=== PATIENT | male | born 1990 | race Two or more races ===

== ENCOUNTER 2020-04-12 16:51 | Outpatient (REF) | payer OTHER, SELFPAY | END 2020-04-12 16:52 | disposition home or self-care (01) | LOC: HO.LAB 16:51 | PROVIDERS: Visit Provider Internal Medicine | DX: Z20.822 Contact with and (suspected) exposure to COVID-19 (principal) | CPT/HCPCS: 36415; C9803; U0003 ==

== ENCOUNTER 2021-03-19 12:01 | Outpatient (REF) | payer OTHER, SELFPAY ==
[2021-03-19 12:26] LABS: MANUAL DIFF FLAG NO
[2021-03-19 13:22] LABS: Basophils Percent Auto 0.3 % (0-2); Eosinophils Absolute Auto 0.2 X10*3/uL (0.0-0.4); Eosinophils Percent Auto 2.2 % (0-4); Hematocrit 43.9 % (42.0-52.0); Hemoglobin 13.8 g/dl (14.0-18.0); Imm Gran Abs Auto 0.02 X10*3/uL (0.00-0.03); Imm Gran Pct Auto 0.3 % (0.0-0.4); Lymphocytes Absolute Auto 1.7 X10*3/uL (1.2-4.9); Lymphocytes Percent Auto 22.8 % (20-40); Mean Corpuscular HGB Conc 31.4 g/dl (31.0-36.0); Mean Corpuscular Hemoglobin 26.8 pg (27.0-33.0); Mean Corpuscular Volume 85.4 fL (80.0-98.0); Mean Platelet Volume 9.2 fL (9.4-12.4); Monocytes Absolute Auto 0.6 X10*3/uL (0.1-1.2); Monocytes Percent Auto 8.3 % (2-11); Neutrophils Absolute Auto 4.8 x10*3/uL (2.0-8.3); Neutrophils Percent Auto 66.1 % (45-73); Platelet Count 314 X10*3/uL (160-400); Red Blood Count 5.14 X10*6/uL (4.60-5.80); Red Cell Distribution Width 13.5 % (11.0-16.0); White Blood Count 7.2 X10*3/uL (4.8-10.8)
[2021-03-19 13:30] LABS: Alanine Aminotransferase 29 U/L (0-40); Albumin Level 4.4 g/dL (3.5-5.0); Alkaline Phosphatase 93 U/L (39-117); Anion Gap 11 (12-20); Aspartate Amino Transferase 23 U/L (5-37); Bilirubin Total 0.8 mg/dL (0.0-1.0); Blood Urea Nitrogen 16 mg/dL (9-16); Calcium 9.6 mg/dL (8.4-10.2); Carbon Dioxide 28 mmol/L (22-29); Chloride 107 mmol/L (96-108); Cholesterol 186 mg/dL; Estimated Glomerular Filt Rate > 60; Glucose Random 102 mg/dL (60-115); HDL Cholesterol 53 mg/dL; LDL Cholesterol Calculated 119 mg/dl; Potassium 4.8 mmol/L (3.3-5.1); Sodium 141 mmol/L (135-145); Total Protein 7.6 g/dL (6.5-8.0); Triglycerides 72 mg/dL
[2021-03-19 13:43] LABS: Free T4 (Free Thyroxine) 1.06 ng/dL (0.71-1.85); Thyroid Stimulating Hormone 1.41 uIU/mL (0.32-4.0)
[2021-03-19 13:58] LABS: Folate 18.1 ng/mL (> or = 4.0); Vitamin B12 792 pg/mL (200-900)
== END 2021-03-19 12:02 | disposition home or self-care (01) ==
LOC: HO.LAB 12:01
PROVIDERS: PCP Internal Medicine; Visit Provider Internal Medicine
DX: E66.9 Obesity, unspecified (principal); E78.00 Pure hypercholesterolemia, unspecified
CPT/HCPCS: 36415; 80053; 80061; 82607; 82746; 84439; 84443; 85025

== ENCOUNTER → 2021-04-18 10:31 | Outpatient (BNVA) | payer OTHER, SELFPAY | PROVIDERS: PCP Internal Medicine; Visit Provider Dietitian, Registered | DX: R73.02 Impaired glucose tolerance (oral) (principal) | CPT/HCPCS: 97802 ==

== ENCOUNTER → 2021-05-31 10:31 | Outpatient (BNVA) | payer OTHER, SELFPAY | PROVIDERS: PCP Internal Medicine; Visit Provider Dietitian, Registered | DX: R73.02 Impaired glucose tolerance (oral) (principal) | CPT/HCPCS: 97803 ==

== ENCOUNTER 2021-07-02 13:54 | Outpatient (REF) | payer OTHER, SELFPAY ==
[2021-07-02 14:08] LABS: MANUAL DIFF FLAG NO
[2021-07-02 14:59] LABS: Basophils Percent Auto 0.3 % (0-2); Eosinophils Absolute Auto 0.1 X10*3/uL (0.0-0.4); Eosinophils Percent Auto 1.9 % (0-4); Hematocrit 41.9 % (42.0-52.0); Hemoglobin 13.2 g/dl (14.0-18.0); Imm Gran Abs Auto 0.02 X10*3/uL (0.00-0.03); Imm Gran Pct Auto 0.3 % (0.0-0.4); Immature Retic Fraction 7.1 % (2.3-13.4); Lymphocytes Absolute Auto 1.9 X10*3/uL (1.2-4.9); Lymphocytes Percent Auto 27.8 % (20-40); Mean Corpuscular HGB Conc 31.5 g/dl (31.0-36.0); Mean Corpuscular Volume 85.7 fL (80.0-98.0); Mean Platelet Volume 9.2 fL (9.4-12.4); Monocytes Absolute Auto 0.5 X10*3/uL (0.1-1.2); Monocytes Percent Auto 7.8 % (2-11); Neutrophils Absolute Auto 4.3 x10*3/uL (2.0-8.3); Neutrophils Percent Auto 61.9 % (45-73); Platelet Count 332 X10*3/uL (160-400); Red Blood Count 4.89 X10*6/uL (4.60-5.80); Red Cell Distribution Width 13.5 % (11.0-16.0); Retic HGB Equivalent 31.5 pg (30.0-35.0); Reticulocyte Percent 0.9 % (0.5-1.8); Reticulocytes Absolute 0.044 X10*6/uL (0.026-0.095); White Blood Count 6.9 X10*3/uL (4.8-10.8)
[2021-07-02 15:10] LABS: Estimated Average Glucose 105 mg/dL; Hemoglobin A1c % 5.3 %
[2021-07-02 15:22] LABS: Alanine Aminotransferase 31 U/L (0-40); Albumin Level 4.2 g/dL (3.5-5.0); Alkaline Phosphatase 104 U/L (39-117); Anion Gap 11 (12-20); Aspartate Amino Transferase 23 U/L (5-37); Bilirubin Total 0.6 mg/dL (0.0-1.0); Blood Urea Nitrogen 14 mg/dL (9-16); Calcium 9.5 mg/dL (8.4-10.2); Carbon Dioxide 27 mmol/L (22-29); Chloride 107 mmol/L (96-108); Estimated Glomerular Filt Rate > 60; Glucose Random 91 mg/dL (60-115); Iron 90 mcg/dL (45-160); Percent Iron Saturation 24 % (15-50); Potassium 4.5 mmol/L (3.3-5.1); Sodium 140 mmol/L (135-145); Total Iron Binding Capacity 372 mcg/dL (228-428); Total Protein 7.4 g/dL (6.5-8.0); Unsaturated Iron Binding 282 ug/dL
[2021-07-02 15:42] LABS: Ferritin 46 ng/mL (20-250)
[2021-07-02 15:54] LABS: Folate 17.6 ng/mL (> or = 4.0); Vitamin B12 898 pg/mL (200-900)
== END 2021-07-02 13:55 | disposition home or self-care (01) ==
LOC: HO.LAB 13:54
PROVIDERS: PCP Internal Medicine; Visit Provider Internal Medicine
DX: D64.9 Anemia, unspecified (principal); R73.02 Impaired glucose tolerance (oral)
CPT/HCPCS: 36415; 80053; 82607; 82728; 82746; 83036; 83540; 85025; 85045

== ENCOUNTER → 2021-07-23 10:56 | Outpatient (BNVA) | payer OTHER, SELFPAY | PROVIDERS: PCP Internal Medicine; Visit Provider Dietitian, Registered | DX: R73.02 Impaired glucose tolerance (oral) (principal); E66.9 Obesity, unspecified; Z68.41 Body mass index [BMI] 40.0-44.9, adult; Z71.3 Dietary counseling and surveillance | CPT/HCPCS: 97803 ==

== ENCOUNTER 2021-10-10 14:15 | Outpatient (REF) | payer OTHER, SELFPAY ==
[2021-10-10 14:44] LABS: MANUAL DIFF FLAG NO
[2021-10-10 16:06] LABS: Basophils Percent Auto 0.4 % (0-2); Eosinophils Absolute Auto 0.2 X10*3/uL (0.0-0.4); Eosinophils Percent Auto 2.5 % (0-4); Hematocrit 41.5 % (42.0-52.0); Hemoglobin 13.4 g/dl (14.0-18.0); Imm Gran Abs Auto 0.02 X10*3/uL (0.00-0.03); Imm Gran Pct Auto 0.3 % (0.0-0.4); Immature Retic Fraction 5.2 % (2.3-13.4); Lymphocytes Percent Auto 26.4 % (20-40); Mean Corpuscular HGB Conc 32.3 g/dl (31.0-36.0); Mean Corpuscular Hemoglobin 27.4 pg (27.0-33.0); Mean Corpuscular Volume 84.9 fL (80.0-98.0); Mean Platelet Volume 9.4 fL (9.4-12.4); Monocytes Absolute Auto 0.7 X10*3/uL (0.1-1.2); Monocytes Percent Auto 8.8 % (2-11); Neutrophils Absolute Auto 4.6 x10*3/uL (2.0-8.3); Neutrophils Percent Auto 61.6 % (45-73); Platelet Count 329 X10*3/uL (160-400); Red Blood Count 4.89 X10*6/uL (4.60-5.80); Red Cell Distribution Width 13.5 % (11.0-16.0); Retic HGB Equivalent 32.6 pg (30.0-35.0); Reticulocyte Percent 1.2 % (0.5-1.8); Reticulocytes Absolute 0.058 X10*6/uL (0.026-0.095); White Blood Count 7.5 X10*3/uL (4.8-10.8)
[2021-10-10 16:22] LABS: Alanine Aminotransferase 23 U/L (0-40); Albumin Level 4.3 g/dL (3.5-5.0); Alkaline Phosphatase 108 U/L (39-117); Anion Gap 12 (12-20); Aspartate Amino Transferase 21 U/L (5-37); Bilirubin Total 0.8 mg/dL (0.0-1.0); Blood Urea Nitrogen 14 mg/dL (9-16); Calcium 8.9 mg/dL (8.4-10.2); Carbon Dioxide 24 mmol/L (22-29); Chloride 106 mmol/L (96-108); Estimated Glomerular Filt Rate > 60; Glucose Random 92 mg/dL (60-115); Iron 89 mcg/dL (45-160); Percent Iron Saturation 24 % (15-50); Potassium 4.1 mmol/L (3.3-5.1); Sodium 138 mmol/L (135-145); Total Iron Binding Capacity 368 mcg/dL (228-428); Total Protein 7.3 g/dL (6.5-8.0); Unsaturated Iron Binding 279 ug/dL
[2021-10-10 16:26] LABS: Estimated Average Glucose 108 mg/dL; Hemoglobin A1c % 5.4 %
[2021-10-10 16:44] LABS: Ferritin 69 ng/mL (20-250); Free T4 (Free Thyroxine) 0.99 ng/dL (0.71-1.85); Thyroid Stimulating Hormone 1.73 uIU/mL (0.32-4.0)
[2021-10-10 16:54] LABS: Folate 17.8 ng/mL (> or = 4.0); Vitamin B12 887 pg/mL (200-900)
== END 2021-10-10 14:16 | disposition home or self-care (01) ==
LOC: HO.LAB 14:15
PROVIDERS: PCP Internal Medicine; Visit Provider Internal Medicine
DX: R73.02 Impaired glucose tolerance (oral) (principal); D64.9 Anemia, unspecified
CPT/HCPCS: 36415; 80053; 82607; 82728; 82746; 83036; 83540; 84439; 84443; 85025; 85045

== ENCOUNTER → 2021-10-23 10:58 | Outpatient (BNV) | payer OTHER, SELFPAY | PROVIDERS: PCP Internal Medicine; Referring Provider Internal Medicine; Visit Provider Internal Medicine Medical Oncology | DX: D64.9 Anemia, unspecified (principal) | CPT/HCPCS: 99204; 99213 ==

== ENCOUNTER → 2021-11-07 13:09 | Outpatient (BNVA) | payer OTHER, SELFPAY | PROVIDERS: PCP Internal Medicine; Visit Provider Dietitian, Registered | DX: R73.02 Impaired glucose tolerance (oral) (principal); E66.9 Obesity, unspecified; Z68.41 Body mass index [BMI] 40.0-44.9, adult; Z71.3 Dietary counseling and surveillance | CPT/HCPCS: 97803 ==

== ENCOUNTER → 2022-02-10 13:03 | Outpatient (BNVA) | payer OTHER, SELFPAY | PROVIDERS: PCP Internal Medicine; Visit Provider Dietitian, Registered | DX: R73.02 Impaired glucose tolerance (oral) (principal) | CPT/HCPCS: 97803 ==

== ENCOUNTER 2022-10-28 11:24 | Outpatient (AMB) | payer OTHER, SELFPAY ==
--- NOTE | 2022-10-28 11:27 | A.OFFPC_ITS ---
Vital Signs 10/28/22 11:28 Height 5 ft 8 in Weight 274 lb BMI 41.7 BP 130/68 Blood Pressure Location Lt brachial Position Sitting Pulse 82 Pulse Source Pulse Oximeter Temp Source Skin Pulse Oximetry (%) 100 Oxygen Delivery Method Room Air Intake Visit Reasons: [facility] 09/29/22 -periformis Intake Note: Patient is here to follow-up after a visit the emergency department at [facility] on Barbecue Cook Required: No Allergies No Known Allergies Allergy (Verified 10/28/22 11:28) Tobacco use date assessed: 10/28/22 Dental Screening Dental Screen Date: 10/28/22 HPI HPI Comments History of Present Illness Details 32-year-old male past medical history significant for impaired glucose tolerance, mild anemia and obesity. Patient of Dr. Hubbard. Patient presents today for emergency room follow-up from [facility] for periformis syndrome he has had in the past.Denied and bowel or bladder problems. Patient reported that he was previously followed by chiropractor with relief of symptoms. Lumbar spine x-ray unremarkable. Patient was treated with Lidoderm patches. Patient states following active back relief center, chiropractic. Patient sates pain in legs are improving. Denies any lower back pain at this time. Denies numbness and tingling, denies bowel or bladder issues. [facility] Medical History (Updated 10/28/22 @ 12:16 by MITRA Norwood) Annual physical exam Obesity (BMI 30-39.9) Family History Father Hypertension Mother Diabetes Sister No problems noted. Other No family history of cancer Social History Household Members: Family Housing: House Are you a primary critical care technician to a significant other at home: No Do you presently have visiting nurse or other home services: No Alcohol intake: never Patient Tobacco Use Status: Never used Tobacco e-Cigarette/Vaping Use: Never Used Second Hand Smoke Exposure: No service: No Current occupational status: employed Cognitive needs: No Hearing needs: No Vision needs: No Questionnaire PHQ-9 Over the last 2 weeks, how often have you been bothered by any of the following problems? 1. Little interest or pleasure in doing things: not at all 2. Feeling down, depressed, or hopeless: not at all 3. Trouble falling or staying asleep, or sleeping too much: not at all 4. Feeling tired or having little energy: not at all 5. Poor appetite or overeating: not at all 6. Feeling bad about yourself - or that you are a failure or have let yourself or your family down: not at all 7. Trouble concentrating on things, such as reading the newspaper or watching television: not at all 8. Moving or speaking so slowly that other people could have noticed. Or the opposite - being so fidgety or restless that you have been moving around a lot more than usual: not at all 9. Thoughts that you would be better off or of hurting yourself in some way: not at all Total score: 0 Depression Screening Interpretation: Negative Source: Developed by Drs. Iván Rush, Elle Burrell, Alfonso Morrell and colleagues, with an educational leisa from [employer]. Thrive Questionnaire Date Thrive assessed: 04/11/22 AUDIT C Alcohol Use Questionnaire (AUDIT-C) 1. How often do you have a drink containing alcohol?: Never 2. How many drinks containing alcohol do you have on a typical day when you are drinking?: 1 or 2 (0) 3. How often do you have six or more drinks on one occasion?: Never Total Score: 0 SHERRY-7 AMB Questionnaire SHERRY-7 Date SHERRY - 7 assessed: 04/11/22 Source: Developed by Drs. Iván Rush, Elle Burrell, Alfonso Morrell and colleagues, with an educational leisa from [employer]. Review of Systems Const Denies chills, Denies fatigue, Denies fever(s) and Denies poor appetite Eyes Denies no additional complaints ENT Reports Normal hearing present Card Denies chest pain, Denies syncope, Denies rapid heart rate and Denies dyspnea Resp Denies cough and Denies dyspnea GI Denies change in stool character, Denies constipation, Denies diarrhea, Denies nausea and Denies vomiting Denies dysuria, Denies urinary frequency and Denies urinary urgency Neuro Reports Normal hearing present, Denies confusion and Denies syncope Psych Denies confusion Endo Denies fatigue Physical exam (Primary Care) Vital Signs: Last Vital Signs Pulse 82 10/28/22 11:28 BP 130/68 10/28/22 11:28 Pulse Ox 100 10/28/22 11:28 Oxygen Delivery Method Room Air 10/28/22 11:28 BMI result Body Mass Index 41.7 Tobacco/Smoking Status: Tobacco use Status Tobacco use date assessed 10/28/22 10/28/22 11:29 Patient Tobacco Use Status Never used Tobacco 10/28/22 11:29 e-Cigarette/Vaping Use Never Used 10/28/22 11:29 PHQ-9: PHQ-9 Score PHQ-9: Total score 0 10/28/22 11:41 Depression Screening Interpretation: Negative Thrive Assessment: Date of Thrive Assessment Date Thrive assessed 04/11/22 10/28/22 11:29 Const General: No confusion Orientation/consciousness: No confusion HENMT Head: Yes normocephalic and Yes atraumatic Eyes Conjunctivae: conjunctivae normal Chest Chest palpation & inspection: normal inspection of the chest Resp Effort & Inspection: normal respiratory effort Auscultation: clear to auscultation bilaterally, no crackles, no rhonchi and no wheezes Cardio Rate: regular rate Rhythm: regular rhythm Heart sounds: S1 normal heart sound present and S2 normal heart sound present GI Inspection: Yes normal to inspection Neuro General: No confusion Cranial nerves: Yes Normal hearing present Extrem General: No edema Assessment and Plan Assessment & Plan (1) Piriformis syndrome of both sides: Code(s): G57.03 - Lesion of sciatic nerve, bilateral lower limbs Plan: Patient declined referral to physical therapy at this time. Patient declined the need for refill on Lidoderm patches. Patient states he will continue to follow with his chiropractor in follow-up if needed. Coding Level of Care Code Est Pt Level 3 (70671) Diagnoses Piriformis syndrome of both sides G57.03
[2022-10-28 11:28] VITALS: BP 130/68; PULSE 82; O2SAT 100; BMI 41.7
== END 2022-10-28 11:46 | disposition home or self-care (01) ==
PROVIDERS: PCP Internal Medicine; Visit Provider Nurse Practitioner Family
DX: G57.03 Lesion of sciatic nerve, bilateral lower limbs (principal)
CPT/HCPCS: 99213

== ENCOUNTER 2022-12-31 12:23 | Outpatient (AMB) | payer OTHER, SELFPAY ==
--- NOTE | 2022-12-31 12:34 | MHC.PC.OV ---
Vital Signs 12/31/22 12:36 Height 5 ft 8 in Weight 271 lb BMI 41.2 BP 90/60 Blood Pressure Location Lt brachial Position Sitting Pulse 61 Pulse Source Pulse Oximeter Pulse Oximetry (%) 98 Oxygen Delivery Method Room Air Intake Visit Reasons: Obesity Intake Note: Patient is here to follow up on Obesity. [employer] Technical Lead Senior Developer Required: No Operations Advisor: Not Required per policy Accompanied by: Self / Same As Patient Allergies No Known Allergies Allergy (Verified 12/31/22 12:36) Tobacco use date assessed: 12/31/22 Dental Screening Dental Screen Date: 12/31/22 Did you have a dental visit in the last 12 months?: No Did you have a dental problem in the last 6 months where you did not have access to dental care?: No Was dental information given to patient?: No HPI Obesity HPI Details 32-year-old morbidly obese male with impaired glucose tolerance mild anemia coming in for follow-up. In October 2022 for piriformis syndrome which is sciatic nerve problem patient follows up with hematology oncology also and continue to follow-up blood count having anemia. runny nose, no sob.. trying to loose weight - attending classes. [facility] Medical History (Updated 12/31/22 @ 12:52 by Tuan Hubbard MD) Piriformis syndrome of both sides Obesity (BMI 30-39.9) Annual physical exam Surgical History (Updated 12/31/22 @ 12:40 by KYLER Sanchez) History of wisdom tooth extraction Family History (Updated 12/31/22 @ 12:35 by KYLER Sanchez) Father Hypertension Mother Diabetes Sister No problems noted. Other No family history of cancer Social History Household Members: Family Housing: House Are you a primary director of patient care to a significant other at home: No Do you presently have visiting nurse or other home services: No Alcohol intake: never Patient Tobacco Use Status: Never used Tobacco e-Cigarette/Vaping Use: Never Used Second Hand Smoke Exposure: No service: No Current occupational status: employed Cognitive needs: No Hearing needs: No Vision needs: No Questionnaire Thrive Questionnaire Date Thrive assessed: 04/11/22 SHERRY-7 AMB Questionnaire SHERRY-7 Date SHERRY - 7 assessed: 04/11/22 Source: Developed by Elle Quan B.W. Indra, Alfonso Morrell and colleagues, with an educational leisa from [employer]. Physical exam (Primary Care) Vital Signs: Last Vital Signs Pulse 61 12/31/22 12:36 BP 90/60 12/31/22 12:36 Pulse Ox 98 12/31/22 12:36 Oxygen Delivery Method Room Air 12/31/22 12:36 BMI result Body Mass Index 41.2 Tobacco/Smoking Status: Tobacco use Status Tobacco use date assessed 12/31/22 12/31/22 12:40 Patient Tobacco Use Status Never used Tobacco 12/31/22 12:35 e-Cigarette/Vaping Use Never Used 12/31/22 12:35 Thrive Assessment: Date of Thrive Assessment Date Thrive assessed 04/11/22 12/31/22 12:35 Const General: alert; No acute distress Eyes Conjunctivae: conjunctivae normal Resp Auscultation: clear to auscultation bilaterally Cardio Rate: regular rate Rhythm: regular rhythm GI Inspection: Yes normal to inspection Extrem General: Yes normal to inspection and No edema Office Procedures Flu Questionnaire Does the patient have a severe egg allergy?: No Does the patient have severe life threatening allergies?: No Does the patient have a fever or illness today?: No Has the patient ever had Guillain-[place] Syndrome?: No Has the patient ever had any past reaction to a flu shot?: No Immunizations flu vacc [id number] 6mos up(PF) 60 mcg(15 mcgx4)/0.5 mL IM syringe Performing Provider: Tuan Hubbard MD [facility] Administered by: KYLER Sanchez on 12/31/22 12:40 Dose Route Admin Location Dispensed Lot Number Expiration Date NDC Physician Assistant 0.5 mL IM Left Deltoid 0.5 mL [id number] 09/27/23 15032-127-31 [employer] VIS Given Date VIS Provided VIS Publication Date 12/31/22 Single Vaccine 20 Eligibility Eligibility Date Funding Source Not [facility] Eligible 12/31/22 Private Assessment and Plan Assessment & Plan (1) Morbid obesity: Code(s): E66.01 - Morbid (severe) obesity due to excess calories Plan: Diet and exercise (2) Sciatic nerve pain: Code(s): M54.30 - Sciatica, unspecified side Plan: Keep active patient follows up with chiropractor and is better now (3) Normochromic normocytic anemia: Code(s): D64.9 - Anemia, unspecified Plan: Patient follows up with hematology oncology and continue to monitor (4) Generalized anxiety disorder: Code(s): F41.1 - Generalized anxiety disorder Orders: Orders Influenza [id number] Immunization Today Z23 - Encounter for immunization Referrals Psychiatry Referral F41.1 - Generalized anxiety disorder Medications: New flu vacc [id number] 6mos up(PF) 0.5 mL IM ONCE 0.5 mL 0RF Z23 - Encounter for immunization Coding Level of Care Code Est Pt Level 4 (67717) Diagnoses Morbid obesity E66.01 Sciatic nerve pain M54.30 Normochromic normocytic anemia D64.9 Generalized anxiety disorder F41.1
[2022-12-31 12:36] VITALS: BP 90/60; PULSE 61; O2SAT 98; BMI 41.2
== END 2022-12-31 12:57 | disposition home or self-care (01) ==
PROVIDERS: PCP Internal Medicine; Visit Provider Internal Medicine
DX: M54.30 Sciatica, unspecified side (principal); E66.01 Morbid (severe) obesity due to excess calories; Z68.41 Body mass index [BMI] 40.0-44.9, adult; Z23 Encounter for immunization; D64.9 Anemia, unspecified; F41.1 Generalized anxiety disorder
CPT/HCPCS: 90471; 90686; 99214

== ENCOUNTER 2023-07-02 15:43 | Outpatient (AMB) | payer OTHER, SELFPAY ==
[2023-07-02 15:43] VITALS: BMI 40.6
--- NOTE | 2023-07-02 15:43 | MHC.PC.OV ---
Vital Signs 07/02/23 15:43 Height 5 ft 8 in Weight 267 lb 0.2 oz BMI 40.6 Intake Visit Reasons: obesity Inside Sales Person Required: No Allergies No Known Allergies Allergy (Verified 07/02/23 15:44) Medication List - Last Reconciled 07/02/23 by Tuan Hubbard MD garlic 1,000 mg PO DAILY iron 65 mg PO DAILY multivit with min-folic acid 200 mcg (Multivitamin Gummies) 1 tab PO DAILY ondansetron 8 mg PO Q8H PRN Tobacco use date assessed: 07/02/23 Dental Screening Dental Screen Date: 12/31/22 HPI obesity HPI Details 33-year-old morbidly obese male with generalized anxiety disorder impaired glucose tolerance anemia coming in for follow-up through Telehealth last seen in December 2022. Review of the notes follows up with Hematology-Oncology April 2023 blood count stable and will continue to monitor.yesterday, nausea or vomiting watery stools, . Patient has been told by family to get psychiatric evaluation and will do referral. [facility] Medical History (Updated 07/02/23 @ 17:25 by Tuan Hubbard MD) Piriformis syndrome of both sides Obesity (BMI 30-39.9) Annual physical exam Surgical History History of wisdom tooth extraction Family History Father Hypertension Mother Diabetes Sister No problems noted. Other No family history of cancer Social History Household Members: Family Housing: House Are you a primary care assistant to a significant other at home: No Do you presently have visiting nurse or other home services: No Alcohol intake: never Patient Tobacco Use Status: Never used Tobacco e-Cigarette/Vaping Use: Never Used Second Hand Smoke Exposure: No service: No Current occupational status: employed Cognitive needs: No Hearing needs: No Vision needs: No Questionnaire Thrive Questionnaire Date Thrive assessed: 04/11/22 AUDIT C Alcohol Use Questionnaire (AUDIT-C) 1. How often do you have a drink containing alcohol?: Never 2. How many drinks containing alcohol do you have on a typical day when you are drinking?: 1 or 2 (0) 3. How often do you have six or more drinks on one occasion?: Never Total Score: 0 SHERRY-7 AMB Questionnaire SHERRY-7 Date SHERRY - 7 assessed: 04/11/22 Source: Developed by Drs. Iván Rush, Elle Burrell, Alfonso Morrell and colleagues, with an educational leisa from [employer]. Physical exam (Primary Care) BMI result Body Mass Index 40.6 Tobacco/Smoking Status: Tobacco use Status Tobacco use date assessed 07/02/23 07/02/23 15:45 Patient Tobacco Use Status Never used Tobacco 07/02/23 15:45 e-Cigarette/Vaping Use Never Used 07/02/23 15:45 Thrive Assessment: Date of Thrive Assessment Date Thrive assessed 04/11/22 07/02/23 15:45 Telehealth Telehealth Location of provider rendering services: practice address Location of patient: address on file Patient Identification confirmed using: Name, : Yes Telehealth method: video (iphone ) Patient verbally consented to treatment: Yes Patient verbally consented to billing insurance company: Yes Patient informed of any privacy concerns related to visit: Yes Minutes spent on Phone/Video with Pt.: 25 Assessment and Plan Assessment & Plan (1) Morbid obesity: Code(s): E66.01 - Morbid (severe) obesity due to excess calories Plan: Noted weight loss, continue to eat healthy, keep active and keep well hydrated (2) Impaired glucose tolerance: Code(s): R73.02 - Impaired glucose tolerance (oral) Plan: Decrease the amount of carbohydrate intake, pasta, bread, rice and potatoes are all sugar and that is aside from all the sweet stuff, remember that fruits are good but they are Sweet also. (3) Normochromic normocytic anemia: Code(s): D64.9 - Anemia, unspecified Plan: Continue to monitor blood count. (4) Gastroenteritis: Code(s): K52.9 - Noninfective gastroenteritis and colitis, unspecified Plan: discussed the importance of keeping well hydrated, discussed about symptoms of getting dehydrated like last urine output if it is more than 5 hours already then it is a problem, advised patient to stick the tongue out and the moisture on the tongue gives us an idea of hydration. (5) Generalized anxiety disorder: Code(s): F41.1 - Generalized anxiety disorder Plan: Family is asking for psychiatric evaluation and referral is done Orders: Referrals Psychiatry Referral F41.1 - Generalized anxiety disorder Medications: New ondansetron 8 mg PO Q8H PRN 14 tabs 0RF nausea and vomiting K52.9 - Noninfective gastroenteritis and colitis, unspecified Coding Level of Care Code Tele Est Pt Level 4 (81158) Diagnoses Morbid obesity E66.01 Impaired glucose tolerance R73.02 Normochromic normocytic anemia D64.9 Gastroenteritis K52.9 Generalized anxiety disorder F41.1
== END 2023-07-02 17:33 | disposition home or self-care (01) ==
LOC: HO.HMGH 15:43
PROVIDERS: PCP Internal Medicine; Visit Provider Internal Medicine
DX: E66.01 Morbid (severe) obesity due to excess calories (principal); Z68.41 Body mass index [BMI] 40.0-44.9, adult; R73.02 Impaired glucose tolerance (oral); D64.9 Anemia, unspecified; F41.1 Generalized anxiety disorder
CPT/HCPCS: 99214

== ENCOUNTER 2023-11-23 16:42 | Outpatient (AMB) | payer OTHER, SELFPAY ==
[2023-11-23 16:47] VITALS: BP 130/80; PULSE 62; O2SAT 98; BMI 42.3
--- NOTE | 2023-11-23 16:47 | MHC.PC.OV ---
Vital Signs 11/23/23 16:47 Height 5 ft 8 in Weight 278 lb 8 oz BMI 42.3 BP 130/80 Blood Pressure Location Lt brachial Position Sitting Pulse 62 Pulse Source Pulse Oximeter Pulse Oximetry (%) 98 Oxygen Delivery Method Room Air Intake Visit Reasons: Generalized anxiety disorder- NEEDS PHQ9 Division Service Manager Required: No Accompanied by: Self / Same As Patient Allergies No Known Allergies Allergy (Verified 11/23/23 16:48) Medication List - Last Reconciled 11/23/23 by Tuan Hubbard MD iron 65 mg PO DAILY krill oil mg PO multivit with min-folic acid 200 mcg (Multivitamin Gummies) 1 tab PO DAILY Tobacco use date assessed: 11/23/23 Dental Screening Dental Screen Date: 11/23/23 Did you have a dental visit in the last 12 months?: Yes Did you have a dental problem in the last 6 months where you did not have access to dental care?: No Was dental information given to patient?: Patient has dentist HPI Generalized anxiety disorder- NEEDS PHQ9 HPI Details 33-year-old morbidly obese male with impaired glucose tolerance anemia generalized anxiety disorder last seen in June 2023. Patient is here for follow-up. Patient did see Hematology-Oncology for follow-up this has been stable and continues to be followed up. deny depression . Patient brouhgt in form for cori mony to [facility] Medical History (Updated 11/23/23 @ 17:04 by Tuan Hubbard MD) Obesity Piriformis syndrome of both sides Obesity (BMI 30-39.9) Annual physical exam Surgical History History of wisdom tooth extraction Family History Father Hypertension Mother Diabetes Sister No problems noted. Other No family history of cancer Social History Household Members: Family Housing: House Are you a primary primary care nurse practitioner to a significant other at home: No Do you presently have visiting nurse or other home services: No Alcohol intake: never Patient Tobacco Use Status: Never used Tobacco e-Cigarette/Vaping Use: Never Used Second Hand Smoke Exposure: No service: No Current occupational status: employed Current occupational exposures/hazards: No Cognitive needs: No Hearing needs: No Vision needs: No Questionnaire PHQ-9 Over the last 2 weeks, how often have you been bothered by any of the following problems? 1. Little interest or pleasure in doing things: not at all 2. Feeling down, depressed, or hopeless: not at all 3. Trouble falling or staying asleep, or sleeping too much: not at all 4. Feeling tired or having little energy: not at all 5. Poor appetite or overeating: not at all 6. Feeling bad about yourself - or that you are a failure or have let yourself or your family down: not at all 7. Trouble concentrating on things, such as reading the newspaper or watching television: not at all 8. Moving or speaking so slowly that other people could have noticed. Or the opposite - being so fidgety or restless that you have been moving around a lot more than usual: not at all 9. Thoughts that you would be better off or of hurting yourself in some way: not at all Total score: 0 Depression Screening Interpretation: Negative Depression Screening Done: Yes 73771 - PHQ-9 Billing: Yes Source: Developed by Drs. Iván Rush, Elel Burrell, Alfonso Morrell and colleagues, with an educational leisa from [employer]. Thrive Questionnaire Date Thrive assessed: 11/23/23 I am a: Patient What is your living situation today?: I have a steady place to live Within the past 12 months, did the food you bought not last and you didn't have the money to get more?: Never true Within the past 12 months, did you worry whether your food would run out before you got money to buy more?: Never true Do you have trouble paying for medicines?: No Do you have trouble getting transportation to medical appointments?: No Do you have trouble paying your heating and electricity bill?: No Do you have trouble taking care of your child, family member or friend?: No Do you have trouble with day-to-day activities such as bathing, preparing meals, shopping, managing finances, etc.?: No Are you currently unemployed and looking for a job?: No Are you interested in more education?: No Please select the resources that you would like help with: None Currently or been in a relationship where the following occur: No concerns reported THRIVE Score: 0 AUDIT C Alcohol Use Questionnaire (AUDIT-C) 1. How often do you have a drink containing alcohol?: Never 2. How many drinks containing alcohol do you have on a typical day when you are drinking?: 1 or 2 (0) 3. How often do you have six or more drinks on one occasion?: Never Total Score: 0 SHERRY-7 AMB Questionnaire SHERRY-7 Date SHERRY - 7 assessed: 11/23/23 Feeling nervous, anxious, or on edge: 1 = Several days Not being able to stop or control worryin = Several days Worrying too much about different things: 1 = Several days Trouble relaxin = Not at all Being so restless that it is hard to sit still: 0 = Not at all Becoming easily annoyed or irritable: 0 = Not at all Feeling afraid as if something awful might happen: 0 = Not at all Total SHERRY-7 score (0-4 normal; 5-9 mild; 10-14 moderate; 15-21 severe): 3 Source: Developed by Drs. Iván Rush, Elle Burrell, Alfonso Morrell and colleagues, with an educational leisa from [employer]. Review of Systems Const Denies poor appetite and Denies weakness Eyes Denies no additional complaints ENT Reports Normal hearing present, Denies dizziness, Denies nasal congestion, Denies tinnitus and Denies sore throat Card Denies chest pain, Denies syncope, Denies rapid heart rate and Denies dyspnea Resp Denies cough and Denies dyspnea GI Denies change in stool character, Reports constipation, Denies diarrhea, Denies nausea and Denies vomiting Denies dysuria and Denies urinary frequency Neuro Reports Normal hearing present, Denies confusion, Denies dizziness, Denies syncope and Denies weakness Psych Denies confusion Physical exam (Primary Care) Vital Signs: Last Vital Signs Pulse 62 11/23/23 16:47 BP 130/80 11/23/23 16:47 Pulse Ox 98 11/23/23 16:47 Oxygen Delivery Method Room Air 11/23/23 16:47 BMI result Body Mass Index 42.3 Tobacco/Smoking Status: Tobacco use Status Tobacco use date assessed 11/23/23 11/23/23 16:54 Patient Tobacco Use Status Never used Tobacco 11/23/23 16:54 e-Cigarette/Vaping Use Never Used 11/23/23 16:54 PHQ-9: PHQ-9 Score PHQ-9: Total score 0 11/23/23 16:54 Depression Screening Interpretation: Negative Thrive Assessment: Date of Thrive Assessment Date Thrive assessed 11/23/23 11/23/23 16:54 Currently or been in a relationship where the following occur: No concerns reported Const General: No confusion Orientation/consciousness: No confusion HENMT Head: Yes normocephalic Ears: external ears normal and TM's normal bilaterally Face and sinus: Yes normal facial exam Mouth: moist mucous membranes Throat: Yes tonsils normal Eyes Conjunctivae: conjunctivae normal Pupils: Equal, round and reactive pupils present and Pupil accommodation reflex normal Direct Ophthalmoscopy: normal light reflex Neck Neck: No lymphadenopathy Thyroid: Thyroid normal Chest Chest palpation & inspection: normal inspection of the chest Resp Effort & Inspection: normal respiratory effort and no audible wheezes Auscultation: clear to auscultation bilaterally, no crackles, no wheezes and lung sounds not diminished Cardio Rate: regular rate Rhythm: regular rhythm Peripheral pulses: radial pulses present and dorsalis pedis present GI Palpation (GI): no masses Auscultation: normal bowel sounds and normoactive bowel sounds Rectal Exam - Male: Yes deferred Skin General skin exam: no rashes or lesions noted Rashes: no rashes Neuro General: No confusion Cranial nerves: Yes Equal, round and reactive pupils present and Yes Normal hearing present Cognition (Neuro): normal cognition Gait exam (Neuro): Normal gait present Motor exam (neuro): 5/5 motor strength present throughout Deep tendon reflexes (DTR's): Right brachioradialis reflex intensity grade: 2+, Left brachioradialis reflex intensity grade: 2+, Right patellar reflex intensity grade: 2+ and Left patellar reflex intensity grade: 2+ Extrem General: No edema Assessment and Plan Assessment & Plan (1) Generalized anxiety disorder: Comment: counselling [facility] (10/2023) Code(s): F41.1 - Generalized anxiety disorder Plan: Stable (2) Morbid obesity: Code(s): E66.01 - Morbid (severe) obesity due to excess calories Plan: Continue with diet and exercise (3) Normochromic normocytic anemia: Code(s): D64.9 - Anemia, unspecified Plan: Improving patient follows up with Hematology-Oncology. (4) Impaired glucose tolerance: Code(s): R73.02 - Impaired glucose tolerance (oral) Plan: Decrease the amount of carbohydrate intake, pasta, bread, rice and potatoes are all sugar and that is aside from all the sweet stuff, remember that fruits are good but they are Sweet also. Coding Level of Care Code Est Pt Prev Care 18-39y(30983) Diagnoses Generalized anxiety disorder F41.1 Morbid obesity E66.01 Normochromic normocytic anemia D64.9 Impaired glucose tolerance R73.02
== END 2023-11-23 17:20 | disposition home or self-care (01) ==
PROVIDERS: PCP Internal Medicine; Visit Provider Internal Medicine
DX: Z00.00 Encounter for general adult medical examination without abnormal findings (principal); E66.01 Morbid (severe) obesity due to excess calories; Z68.41 Body mass index [BMI] 40.0-44.9, adult; D64.9 Anemia, unspecified; F41.1 Generalized anxiety disorder; R73.02 Impaired glucose tolerance (oral)
CPT/HCPCS: 99395

== ENCOUNTER 2024-01-08 14:51 | Outpatient (AMB) | payer OTHER, SELFPAY ==
--- NOTE | 2024-01-08 14:56 | AM.OFFVISNUR ---
Intake Visit Reasons: Flu Vaccine Allergies No Known Allergies Allergy (Verified 11/23/23 16:48) Office Procedures Flu Questionnaire Does the patient have a severe egg allergy?: No Does the patient have severe life threatening allergies?: No Does the patient have a fever or illness today?: No Has the patient ever had Guillain-[place] Syndrome?: No Has the patient ever had any past reaction to a flu shot?: No Assessment & Plan Assessment & Plan Orders: Orders Influenza [id number] Immunization Today Z23 - Encounter for immunization Medications: New Fluarix Triv [id number] (PF) (flu vacc [id number] 6mos up(PF)) 0.5 mL IM ONCE 0.5 mL 0RF NS Z23 - Encounter for immunization
== END 2024-01-08 15:04 | disposition home or self-care (01) ==
PROVIDERS: PCP Internal Medicine; Visit Provider Internal Medicine
DX: Z23 Encounter for immunization (principal)

== ENCOUNTER → 2024-01-08 14:51 | Outpatient (BNVA) | payer OTHER, SELFPAY | PROVIDERS: PCP Internal Medicine; Visit Provider Internal Medicine | DX: Z23 Encounter for immunization (principal) | CPT/HCPCS: 90471; 90656 ==

== ENCOUNTER 2024-04-14 16:16 | Outpatient (AMB) | payer OTHER, SELFPAY ==
--- NOTE | 2024-04-14 16:19 | A.OFFPC_ITS ---
Vital Signs 04/14/24 16:20 04/14/24 16:48 Height 5 ft 8 in Weight 285 lb 4 oz BMI 43.4 BP 128/90 H 130/80 Blood Pressure Location Lt brachial Lt brachial Position Sitting Sitting Pulse 84 Pulse Source Pulse Oximeter Temp 97.1 F Temp Source Skin Pulse Oximetry (%) 98 Oxygen Delivery Method Room Air Intake Visit Reasons: annual exam Intake Note: Patient is here today for a physical. Animal Ride Attendant Required: No Dry Cleaning Manager: Not Required per policy Accompanied by: Self / Same As Patient Allergies No Known Allergies Allergy (Verified 04/14/24 16:20) Medication List - Last Reconciled 04/14/24 by Tuan Hubbard MD garlic 500 mg PO DAILY iron 65 mg PO DAILY krill oil mg PO multivit with min-folic acid 200 mcg (Multivitamin Gummies) 1 tab PO DAILY Tobacco use date assessed: 04/14/24 Dental Screening Dental Screen Date: 04/14/24 Did you have a dental visit in the last 12 months?: Yes Did you have a dental problem in the last 6 months where you did not have access to dental care?: No Was dental information given to patient?: Patient has dentist HPI annual exam HPI Details The patient is a 34-year-old male presenting with concerns of elevated blood glucose and mild anemia identified during blood work in September. The elevated blood glucose was noted without specific symptoms highlighted by the patient. Mild anemia, with a previous blood count of 13.5, was identified and is of concern. The patient has also experienced weight gain since the last visit. There is no family history of cardiovascular disease or cancer. The patient denies the use of recreational drugs, smoking, or alcohol consumption. He reports issues with nasal congestion, specifically in the context of running. No additional symptoms or interventions have been reported for the elevated glucose or mild anemia apart from upcoming blood work. The patient does not report chest pain, heartburn, gastrointestinal symptoms, or urinary problems. - Blood pressure checked and recorded as 130/80 mmHg. - Discussion on maintaining a healthy di et and regular physical activity. - Advised to remain hydrated regularly. - Discussion about staying cautious of r espiratory viruses (RSV, flu, and COVID- 19) and norovirus. - Routine lab work scheduled for follow- up on prior findings of elevated blood glucose and anemia. - Encouraged on weight management and he althy lifestyle choices. - Denies smoking history. - Denies alcohol consumption. - Denies recreational drug use. - Taking garlic pills occasionally. - Admits to not engaging in regular exer cise currently due to being busy at [facility] [facility]. - General: Denies fever, denies recent v iral illness. - Neurological: Denies fainting, posits nasal congestion when exerting. - Cardiovascular: Denies chest pain, den ies heartburn. - Respiratory: Denies shortness of breat h. - Gastrointestinal: Denies constipation, denies diarrhea. - Urinary: Reports occasionally waking o nce at night to urinate. - ENT: Reports issues with ears feeling inflated at times. - Labs: Previous blood work showed eleva chon blood glucose and mild anemia (hemoglobin 13.5). [facility] Medical History (Updated 11/23/23 @ 17:04 by Tuan Hubbard MD) Obesity Piriformis syndrome of both sides Obesity (BMI 30-39.9) Annual physical exam Surgical History History of wisdom tooth extraction Family History Father Hypertension Mother Diabetes Sister No problems noted. Other No family history of cancer Social History Household Members: Family Housing: House Are you a primary critical care paramedic to a significant other at home: No Do you presently have visiting nurse or other home services: No Alcohol intake: never Patient Tobacco Use Status: Never used Tobacco e-Cigarette/Vaping Use: Never Used Second Hand Smoke Exposure: No service: No Current occupational status: employed Current occupational exposures/hazards: No Cognitive needs: No Hearing needs: No Vision needs: No Questionnaire PHQ-9 Over the last 2 weeks, how often have you been bothered by any of the following problems? 1. Little interest or pleasure in doing things: not at all 2. Feeling down, depressed, or hopeless: not at all 3. Trouble falling or staying asleep, or sleeping too much: several days 4. Feeling tired or having little energy: several days 5. Poor appetite or overeating: several days 6. Feeling bad about yourself - or that you are a failure or have let yourself or your family down: not at all 7. Trouble concentrating on things, such as reading the newspaper or watching television: not at all 8. Moving or speaking so slowly that other people could have noticed. Or the opposite - being so fidgety or restless that you have been moving around a lot more than usual: several days 9. Thoughts that you would be better off or of hurting yourself in some way: not at all Total score: 4 Depression Screening Interpretation: Positive Depression Screening Done: Yes Source: Developed by Drs. Iván Rush, Elle Burrell, Alfonso Morrell and colleagues, with an educational leisa from [employer]. Thrive Questionnaire Date Thrive assessed: 04/14/24 I am a: Patient What is your living situation today?: I have a steady place to live Within the past 12 months, did the food you bought not last and you didn't have the money to get more?: Never true Within the past 12 months, did you worry whether your food would run out before you got money to buy more?: Never true Do you have trouble paying for medicines?: No Do you have trouble getting transportation to medical appointments?: No Do you have trouble paying your heating and electricity bill?: No Do you have trouble taking care of your child, family member or friend?: No Do you have trouble with day-to-day activities such as bathing, preparing meals, shopping, managing finances, etc.?: No Are you currently unemployed and looking for a job?: No Are you interested in more education?: Yes Please select the resources that you would like help with: Food Currently or been in a relationship where the following occur: I choose not to answer THRIVE Score: 0 AUDIT C Alcohol Use Questionnaire (AUDIT-C) 1. How often do you have a drink containing alcohol?: Never Total Score: 0 SHERRY-7 AMB Questionnaire SHERRY-7 Date SHERRY - 7 assessed: 04/14/24 Feeling nervous, anxious, or on edge: 1 = Several days Not being able to stop or control worryin = Not at all Worrying too much about different things: 1 = Several days Trouble relaxin = Not at all Being so restless that it is hard to sit still: 0 = Not at all Becoming easily annoyed or irritable: 0 = Not at all Feeling afraid as if something awful might happen: 1 = Several days Total SHERRY-7 score (0-4 normal; 5-9 mild; 10-14 moderate; 15-21 severe): 3 Source: Developed by Drs. Iván Rush, Elle Burrell, Alfonso Morrell and colleagues, with an educational leisa from [employer]. Review of Systems Const Denies poor appetite and Denies weakness Eyes Denies no additional complaints ENT Reports Normal hearing present, Denies dizziness, Denies nasal congestion, Denies tinnitus and Denies sore throat Card Denies chest pain, Denies syncope, Denies rapid heart rate and Denies dyspnea Resp Denies cough and Denies dyspnea GI Denies change in stool character, Reports constipation, Denies diarrhea, Denies nausea and Denies vomiting Denies dysuria and Denies urinary frequency Neuro Reports Normal hearing present, Denies confusion, Denies dizziness, Denies syncope and Denies weakness Psych Denies confusion Physical exam (Primary Care) Vital Signs: Last Vital Signs Temp 97.1 F 04/14/24 16:20 Pulse 84 04/14/24 16:20 BP 128/90 H 04/14/24 16:20 Pulse Ox 98 04/14/24 16:20 Oxygen Delivery Method Room Air 04/14/24 16:20 BMI result Body Mass Index 43.4 Tobacco/Smoking Status: Tobacco use Status Tobacco use date assessed 04/14/24 04/14/24 16:25 Patient Tobacco Use Status Never used Tobacco 04/14/24 16:25 e-Cigarette/Vaping Use Never Used 04/14/24 16:25 PHQ-9: PHQ-9 Score PHQ-9: Total score 4 04/14/24 16:25 Depression Screening Interpretation: Positive Thrive Assessment: Date of Thrive Assessment Date Thrive assessed 04/14/24 04/14/24 16:25 Currently or been in a relationship where the following occur: I choose not to answer Const General: alert and awake; No confusion Orientation/consciousness: No confusion HENMT Head: Yes normocephalic Ears: external ears normal and TM's normal bilaterally Face and sinus: Yes normal facial exam Mouth: moist mucous membranes Throat: Yes tonsils normal Eyes Conjunctivae: conjunctivae normal Pupils: Equal, round and reactive pupils present and Pupil accommodation reflex normal Direct Ophthalmoscopy: normal light reflex Neck Neck: No lymphadenopathy Thyroid: Thyroid normal Chest Chest palpation & inspection: normal inspection of the chest Resp Effort & Inspection: normal respiratory effort and no audible wheezes Auscultation: clear to auscultation bilaterally, no crackles, no wheezes and lung sounds not diminished Cardio Rate: regular rate Rhythm: regular rhythm Peripheral pulses: radial pulses present and dorsalis pedis present GI Other: visual rectal negative Palpation (GI): no masses Auscultation: normal bowel sounds and normoactive bowel sounds Rectal Exam - Male: Yes deferred Male General Exam: Yes normal external exam Skin General skin exam: no rashes or lesions noted Rashes: no rashes Neuro General: deep tendon reflexes 2+ bilaterally and No confusion Cranial nerves: Yes Equal, round and reactive pupils present, Yes Midline tongue present, Yes Normal hearing present and Yes Ability to bilaterally elevate shoulders present Cognition (Neuro): normal cognition Gait exam (Neuro): Normal gait present Motor exam (neuro): 5/5 motor strength present throughout Deep tendon reflexes (DTR's): Right brachioradialis reflex intensity grade: 2+, Left brachioradialis reflex intensity grade: 2+, Right patellar reflex intensity grade: 2+ and Left patellar reflex intensity grade: 2+ Extrem General: No edema Coding Level of Care Code Est Pt Prev Care 18-39y(09150) Diagnoses Annual physical exam Z00.00 Morbid obesity E66.01 Impaired glucose tolerance R73.02 Mild anemia D64.9 Generalized anxiety disorder F41.1 Assessment & Plan Assessment & Plan (1) Annual physical exam: Code(s): Z00.00 - Encounter for general adult medical examination without abnormal findings Category: Medical (2) Morbid obesity: Code(s): E66.01 - Morbid (severe) obesity due to excess calories Category: Medical (3) Impaired glucose tolerance: Code(s): R73.02 - Impaired glucose tolerance (oral) Category: Medical (4) Mild anemia: Code(s): D64.9 - Anemia, unspecified Category: Medical (5) Generalized anxiety disorder: Comment: counselling [facility] (10/2023) Code(s): F41.1 - Generalized anxiety disorder Category: Medical Plan - Follow up on elevated blood glucose and mild anemia with further lab testing scheduled. - Monitor weight and encourage healthy lifestyle modifications, including increased physical activity and dietary considerations. - Address nasal congestion with potential treatments for allergies or other contributing factors. - Reinforce importance of precautions against viral illnesses, emphasizing hand hygiene and limiting exposure to symptomatic individuals. - Follow-up appointment in six months to reassess glucose levels, anemia, and weight management progress. I discussed with the patient the significance of monitoring his blood glucose levels and the potential implications of his mild anemia. We reviewed his recent weight gain and the importance of incorporating regular exercise and a well- balanced diet to address these health concerns. We also discussed the significance of preventing infection from common respiratory viruses and norovirus, especially in crowded environments. We agreed on the necessity to conduct follow-up lab tests and reassess in six months, ensuring any conditions are promptly addressed. - Schedule follow-up blood work to monitor blood glucose and anemia. - Aim for consistent physical activity and a nutritious diet to manage weight. - Stay hydrated and avoid sugary beverages. - Follow safety measures to prevent catching viral infections: handwashing and limiting exposure to symptomatic people. - Report any new symptoms, such as persistent cough or fever, promptly. Orders: Orders Complete Blood Count Auto Diff Today R73.02 - Impaired glucose tolerance (oral) Free T4 (Free Thyroxine) Today R73.02 - Impaired glucose tolerance (oral) Ferritin Today R73.02 - Impaired glucose tolerance (oral) IRON PROFILE Today R73.02 - Impaired glucose tolerance (oral) Lipid Panel Today E78.00 - Pure hypercholesterolemia, unspecified, R73.02 - Impaired glucose tolerance (oral) Thyroid Stimulating Hormone Today R73.02 - Impaired glucose tolerance (oral) Vitamin B12 and Folate Today R73.02 - Impaired glucose tolerance (oral) Comprehensive Met. Panel Today R73.02 - Impaired glucose tolerance (oral) Hemoglobin A1c Today R73.02 - Impaired glucose tolerance (oral) Reticulocyte Count Today R73.02 - Impaired glucose tolerance (oral)
[2024-04-14 16:20] VITALS: BP 128/90; PULSE 84; TEMP 36.2; O2SAT 98; BMI 43.4
[2024-04-14 16:48] VITALS: BP 130/80
== END 2024-04-14 17:05 | disposition home or self-care (01) ==
PROVIDERS: PCP Internal Medicine; Visit Provider Internal Medicine
DX: Z00.00 Encounter for general adult medical examination without abnormal findings (principal); E66.01 Morbid (severe) obesity due to excess calories; Z68.41 Body mass index [BMI] 40.0-44.9, adult; R73.02 Impaired glucose tolerance (oral); D64.9 Anemia, unspecified; F41.1 Generalized anxiety disorder

== ENCOUNTER 2024-11-25 14:29 | Outpatient (AMB) | payer OTHER, MEDICAID, SELFPAY ==
--- NOTE | 2024-11-25 14:33 | A.OFFPC_ITS ---
Vital Signs 11/25/24 14:34 11/25/24 15:04 Height 5 ft 8 in Weight 282 lb BMI 42.9 BP 150/68 H 126/80 Blood Pressure Location Lt brachial Lt brachial Position Sitting Sitting Pulse 80 Pulse Source Pulse Oximeter Pulse Oximetry (%) 98 Oxygen Delivery Method Room Air Intake Visit Reasons: morbid obesity, IGT Loader Operator/Ground Leader Required: No Accompanied by: Self / Same As Patient Allergies No Known Allergies Allergy (Verified 11/25/24 14:48) Medication List - Last Reconciled 11/25/24 by Denisa Gamboa PA-C garlic 1,500 mg PO DAILY vdcuqlvlolb-I-Kdzblbzyhrypupk 500-200 mg tabs PO iron 65 mg PO DAILY multivit with min-folic acid 200 mcg (Multivitamin Gummies) 1 tab PO DAILY vit [id number] 15 unit-15 mg- 12.5 mg-1 mg 1 cap PO Tobacco use date assessed: 11/25/24 Dental Screening Dental Screen Date: 11/25/24 Did you have a dental visit in the last 12 months?: Yes Did you have a dental problem in the last 6 months where you did not have access to dental care?: No Was dental information given to patient?: Patient has dentist HPI morbid obesity, IGT HPI Details 34 year old male with past medical histo ry of anemia, IGT, generalized anxiety disorder last seen 03/2024 coming in for follow up. In review of the notes, patient was since by hematology 10/2024 monitoring blood count and follow up in 6 months. Presenting with a follow-up for anemia and weight management. Under insurance underwriter care with improved hemoglobin levels from 12.2 g/dL to 13.3 g/dL. Scheduled for a follow-up in six months. Reports a 5-pound weight loss since the last visit. Engages in treadmill running and weight lifting but struggles with dietary adherence. Previous yarn examiner consultation was discontinued due to feeling overwhelmed by dietary recommendations and not seeing progress. [facility] Medical History Obesity Piriformis syndrome of both sides Obesity (BMI 30-39.9) Annual physical exam Surgical History History of wisdom tooth extraction Family History Father Hypertension Mother Diabetes Sister No problems noted. Other No family history of cancer Social History Household Members: Family Housing: House Are you a primary care transitions manager to a significant other at home: No Do you presently have visiting nurse or other home services: No Alcohol intake: never Patient Tobacco Use Status: Never used Tobacco e-Cigarette/Vaping Use: Never Used Second Hand Smoke Exposure: No service: No Current occupational status: employed Current occupational exposures/hazards: No Cognitive needs: No Hearing needs: No Vision needs: No Questionnaire PHQ-9 Over the last 2 weeks, how often have you been bothered by any of the following problems? 1. Little interest or pleasure in doing things: not at all 2. Feeling down, depressed, or hopeless: not at all 3. Trouble falling or staying asleep, or sleeping too much: several days 4. Feeling tired or having little energy: several days 5. Poor appetite or overeating: several days 6. Feeling bad about yourself - or that you are a failure or have let yourself or your family down: not at all 7. Trouble concentrating on things, such as reading the newspaper or watching television: not at all 8. Moving or speaking so slowly that other people could have noticed. Or the opposite - being so fidgety or restless that you have been moving around a lot more than usual: several days 9. Thoughts that you would be better off or of hurting yourself in some way: not at all Total score: 4 Depression Screening Interpretation: Positive Depression Screening Done: Yes Source: Developed by Drs. Iván Rush, Elle Burrell, Alfonso Morrell and colleagues, with an educational leisa from [employer]. Thrive Questionnaire Date Thrive assessed: 04/14/24 I am a: Patient What is your living situation today?: I have a steady place to live Within the past 12 months, did the food you bought not last and you didn't have the money to get more?: Never true Within the past 12 months, did you worry whether your food would run out before you got money to buy more?: Never true Do you have trouble paying for medicines?: No Do you have trouble getting transportation to medical appointments?: No Do you have trouble paying your heating and electricity bill?: No Do you have trouble taking care of your child, family member or friend?: No Do you have trouble with day-to-day activities such as bathing, preparing meals, shopping, managing finances, etc.?: No Are you currently unemployed and looking for a job?: No Are you interested in more education?: Yes Please select the resources that you would like help with: Food Currently or been in a relationship where the following occur: I choose not to answer THRIVE Score: 0 AUDIT C Alcohol Use Questionnaire (AUDIT-C) 3. How often do you have six or more drinks on one occasion?: Never Total Score: 0 SHERRY-7 AMB Questionnaire SHERRY-7 Date SHERRY - 7 assessed: 04/14/24 Feeling nervous, anxious, or on edge: 1 = Several days Not being able to stop or control worryin = Not at all Worrying too much about different things: 1 = Several days Trouble relaxin = Not at all Being so restless that it is hard to sit still: 0 = Not at all Becoming easily annoyed or irritable: 0 = Not at all Feeling afraid as if something awful might happen: 1 = Several days Total SHERRY-7 score (0-4 normal; 5-9 mild; 10-14 moderate; 15-21 severe): 3 Source: Developed by Drs. Iván Rush, Elle Burrell, Alfonso Morrell and colleagues, with an educational leisa from [employer]. Review of Systems Const Denies body aches, Denies chills, Denies fever(s) and Denies poor appetite Eyes Reports no additional complaints ENT Denies dizziness Card Denies chest pain and Denies dyspnea Resp Denies dyspnea GI Denies nausea and Denies vomiting Reports no additional complaints Musc Reports no additional complaints and Denies abnormal gait Skin/Breast Reports system reviewed and no additional complaints, except as documented Neuro Denies abnormal gait and Denies dizziness Psych Reports no additional complaints Physical exam (Primary Care) Vital Signs: Last Vital Signs Pulse 80 11/25/24 14:34 BP 126/80 11/25/24 15:04 Pulse Ox 98 11/25/24 14:34 Oxygen Delivery Method Room Air 11/25/24 14:34 BMI result Body Mass Index 42.9 Tobacco/Smoking Status: Tobacco use Status Tobacco use date assessed 11/25/24 11/25/24 14:38 Patient Tobacco Use Status Never used Tobacco 11/25/24 14:38 e-Cigarette/Vaping Use Never Used 11/25/24 14:38 PHQ-9: PHQ-9 Score PHQ-9: Total score 4 11/25/24 16:59 Depression Screening Interpretation: Positive Thrive Assessment: Date of Thrive Assessment Date Thrive assessed 04/14/24 11/25/24 14:38 Currently or been in a relationship where the following occur: I choose not to answer Const General: cooperative, healthy appearing, comfortable and no acute distress Orientation/consciousness: patient oriented x3 HENMT Head: Yes normocephalic Ears: hearing grossly normal bilaterally General nose exam: Normal external nose present Eyes General: appearance normal, both eyes and all related structures Conjunctivae: conjunctivae normal Neck Neck: Yes full ROM and Yes no lymphadenopathy Resp Effort & Inspection: normal respiratory effort Auscultation: clear to auscultation bilaterally, no crackles, no rales, no rhonchi and no wheezes Cardio Rate: regular rate Rhythm: regular rhythm Skin General skin exam: no rashes or lesions noted Neuro General: patient oriented x3 Gait exam (Neuro): Normal gait present Extrem General: Yes normal to inspection, Yes full ROM and No edema Psych Affect: normal affect Attitude: cooperative Insight: Good insight present (Psych) Judgement: Good judgement present (Psych) Coding Level of Care Code Est Pt Level 3 (91038) Diagnoses Impaired glucose tolerance R73.02 Morbid obesity E66.01 Normochromic normocytic anemia D64.9 Assessment & Plan Assessment & Plan (1) Impaired glucose tolerance: Code(s): R73.02 - Impaired glucose tolerance (oral) Category: Medical Plan: Decrease the amount of carbohydrates such as pasta, bread, rice, and potatoes and limit the amount of sweets. Although fruits are generally healthy they should be eaten in moderation as they are still high in sugar. (2) Morbid obesity: Code(s): E66.01 - Morbid (severe) obesity due to excess calories Category: Medical Plan: Healthy diet and regular exercise is encouraged. Patient was counseled today on the risks and benefits of GLP-1 injections as well as the dosing schedule. She has no family history or personal history of thyroid disease and no gallbladder disease. Discussed with the patient the potential GI side effects of this medication. Plan to have repeat blood work after one month of therapy to monitor kidney and liver function before increasing the dose of this medication. Follow up in 3 months for a weight check. (3) Normochromic normocytic anemia: Code(s): D64.9 - Anemia, unspecified Category: Medical Plan: Blood work shows improvement and continue to follow with Hematology on a six- month basis. Plan I discussed with the patient the improvement in anemia and the plan to continue monitoring with the insurance underwriter. We reviewed the options for weight management, including the potential use of injection therapy, and the need for regular follow-up to assess efficacy and insurance coverage. The patient was informed about the side effects of the weight loss medication and the importance of lifestyle modifications. We also discussed the need for blood pressure monitoring due to the slight elevation noted during the visit. This note was constructed using voice recognition software. While every effort has been made to ensure accuracy and human insights lead ads marketing, still areas may have been included sometimes these areas may affect the content or meeting of the given symptoms. Total time spent caring for the patient today was 20 minutes. This includes time spent before the visit reviewing the chart, time spent during the visit, and time spent after the visit and documentation. Patient was informed and verbally consented to the use of an ambient scribe for clinic note documentation during this visit. Medications: New semaglutide (weight loss) (Wetaviavthompson) administer weeks 1 through 4 of therapy 0.25 mg (0.5 mL) subcut QWEEK 2 mL 0RF E66.01 - Morbid (severe) obesity due to excess calories, R03.0 - Elevated blood-pressure reading, without diagnosis of hypertension, R73.02 - Impaired glucose tolerance (oral)
--- OUTSIDE RECORDS SUMMARY | 2024-11-25 14:33 | XMS_ITS | Encounter Summary ---
Author Organization [facility] Address [address] [place] [address] Care Team Providers Care Electric Sign Assembler Name Role Phone Unavailable Primary Care Provider Unavailabl e Encounter Details Date Type Department Care Team ([facility] st Contact Info) Description 08/27/2021 Dental Interim Note [facility] [address] [place] [phone] [address] [place] [address] Social History Tobacco Use Types Packs/Day Years Used Date Smoking Tobacco: Never Smokeless Tobacco: Never Alcohol Use Standard Drinks/Week Comments No 0 (1 standard drink = 0.6 oz pur e alcohol) Social Connections Answer Date Recorded Social Connections and Isolation 0 11/10/2020 Financial Resource Strain Answer Date R ecorded Financial Resource Strain 0 2020 Stress Answer Date Recorded Stress 0 11/10/2020 Physical Activity Answer Date Recorded Physical Activity 0 11/10/2020 Food Insecurity Answer Date Recorded Food 0 11/10/2020 Transportation Needs Answer Date Record ed Transportation 0 11/10/2020 Housing Stability Answer Date Recorded Housing 0 11/10/2020 Safety and Environment Answer Date Roberto Carlos rded Safety 0 11/10/2020 Utilities Answer Date Recorded Utilities 0 11/10/2020 Employment Answer Date Recorded Employment 0 11/10/2020 Sex and Gender Information Value Date Recorded Sex Assigned at Not on file Legal Sex Male 7:28 AM PDT Gender Identity Male Sexual Orientation Straight COVID-19 Exposure Response Date Recorded In the last 10 days, have uriah barber been in contact with someone who was confirmed or suspected to have Coronavirus/COVID-19? No / Unsure 08/27/2021 9:27 AM EDT documented as of this encounter Plan of Treatment Upcoming Encounters Date Type Department Care Team (Late st Contact Info) Description 11/29/2024 3:00 PM EDT Office Visit [facility] [address] [place] [phone] Troy Bah, DMD [address] [place], [place] [phone] 04/26/2025 3:00 PM EST Office Visit [facility] [address] [place] [phone] Breanna Zaidki, RD [address] [place], [place] [phone] documented as of this encounter Procedures Procedure Name Priority Date/Time Associated Diagnosis Comments 13 MOD COMPOSITE - WISDOM (NON BILLABLE) Routine 08/27/2021 12:00 AM EDT 12 DO COMPOSITE - WISDOM (NON BILLABLE) Routine 08/27/2021 12:00 AM EDT 9 M COMPOSITE - WISDOM (NON BILLABLE) Routine 08/27/2021 12:00 AM EDT 8 M COMPOSITE - WISDOM (NON BILLABLE) Routine 08/27/2021 12:00 AM EDT 7 M COMPOSITE - WISDOM (NON BILLABLE) Routine 08/27/2021 12:00 AM EDT 4 DO COMPOSITE - WISDOM (NON BILLABLE) Routine 08/27/2021 12:00 AM EDT 14 MO AMALGAM - WISDOM (NON BILLABLE) Routine 08/27/2021 12:00 AM EDT 5 DO AMALGAM - WISDOM (NON BILLABLE) Routine 08/27/2021 12:00 AM EDT 3 MO AMALGAM - WISDOM (NON BILLABLE) Routine 08/27/2021 12:00 AM EDT documented in this encounter Visit Diagnoses Not on filedocumented in this encounter
--- OUTSIDE RECORDS SUMMARY | 2024-11-25 14:33 | XMS_ITS ---
Author Name [facility] Organization [facility] Care Team Organization Name Specialty Phone Email Start Date End Da te [facility] 06/16/2024 07/13/2024
--- OUTSIDE RECORDS SUMMARY | 2024-11-25 14:33 | XMS_ITS | Clinical Summary ---
Author Organization [facility] Address [address] [place] [address] Care Team Providers Care Department Operations Manager Name Role Phone Unavailable Primary Care Provider Unavailabl e Source Comments PLEASE NOTE, if this patient is a minor, it may be UNLAWFUL to discuss sensitive information that is contained in these records (such as FAMILY PLANNING, MENTAL HEALTH or SUBSTANCE ABUSE) with the minor patient's parent or other person without the patient's specific authorization.[facility] Allergies No known active allergies Medications naproxen (NAPROSYN) 500 mg tabletIndication s:Right hip pain Take 1 Tab by mouth 2 (two) times daily with a meal 60 Tab 0 03/20/2016 Active fluoride, sodium, (PREVIDENT 5000 BOOSTER PLUS) 1.1 % psteIndications: Dental caries Place in mouth once daily 51 g 1 04/01/2018 Active ibuprofen (ADVIL,MOTRIN) 600 mg tablet Take 1 Tab by mouth 4 (four) times daily as needed for pain 20 Tab 04/28/2018 Active penicillin V potassium (VEETID) 500 mg tablet Take 1 Tab by mouth 4 (four) times daily 20 Tab 04/28/2018 Active Active Problems Problem Noted Date Diagnosed Date Obesity (BMI 30-39.9) 12/06/2015 Elevated BP 12/06/2015 Encounters Date Type Department Care Team Description 10/24/2024 3:00 PM EDT Office Visit [facility] [address] [place] [phone] Breana Hodge from Last 3 Months Immunizations Immunization Administration Dates Next Due INFLUENZA, SEASONAL, INJECTABLE, PRESERVATIVE FR EE 12/06/2015 TDAP 12/06/2015 Family History Medical History Relation Name Comments Hypertension Father Diabetes Mother Hypertension Mother Diabetes Paternal Grandmother Heart Problems Paternal Grandmother Relation Name Status Comments Father Alive Mother Alive Paternal Grandmother Social History Tobacco Use Types Packs/Day Years Used Date Smoking Tobacco: Never Smokeless Tobacco: Never Alcohol Use Standard Drinks/Week Comments No 0 (1 standard drink = 0.6 oz pur e alcohol) Social Connections Answer Date Recorded Connectedness 0 12/18/2023 Financial Resource Strain Answer Date R ecorded Financial Resource Strain 0 2020 Stress Answer Date Recorded Stress 0 11/10/2020 Physical Activity Answer Date Recorded Physical Activity 0 11/10/2020 Food Insecurity Answer Date Recorded Food 0 12/24/2023 Transportation Needs Answer Date Record ed Transportation 0 11/10/2020 Housing Stability Answer Date Recorded Housing 0 11/10/2020 Safety and Environment Answer Date Roberto Carlos rded Safety 0 11/10/2020 Utilities Answer Date Recorded Utilities 0 11/10/2020 Employment Answer Date Recorded Stress 0 12/18/2023 Sex and Gender Information Value Date Recorded Sex Assigned at Not on file Legal Sex Male 7:28 AM PDT Gender Identity Male Sexual Orientation Straight Last Filed Vital Signs Vital Sign Reading Time Taken Comments Blood Pressure 110/67 06/01/2024 4:45 PM EST Pulse 75 06/01/2024 4:45 PM EST Temperature 36.2 C (97.2 F) 03/20/2016 2:29 PM EST Respiratory Rate 24 03/20/2016 2:29 PM EST Oxygen Saturation - - Inhaled Oxygen Concentration - - Weight 117.5 kg (259 lb) 03/20/2016 2:29 PM EST Height 172.2 cm (5' 7.8 ) 03/20/2016 2:29 PM EST Body Mass Index 39.61 03/20/2016 2:29 PM EST Plan of Treatment Upcoming Encounters Date Type Department Care Team (Late st Contact Info) Description 11/29/2024 3:00 PM EDT Office Visit [facility] [address] [place] [phone] Troy Bah DMD [address] [place] [phone] 04/26/2025 3:00 PM EST [facility] Visit [facility] [address] [place] [address] Matthew Carlos, RD [address] [place] [address] Health Maintenance Due Date Last Done Comments Anxiety Screening 1991 Hepatitis C Screening 1991 HIV Screening 2006 Imm-Hepatitis B (1 of 3 - 19 + 3-dose series) 2010 Annual Wellness (Adult): Ind icated (All Coverage) 03/20/2017 03/20/2016, 12/06/2015 [id number] ( season) 2023 Alcohol and Drug Screen 03/30/2024 12/06/2015, 12/05 Depression Annual Screen 03/30/2024 03/20/2016, 0910/2015 Imm-Influenza (#1) 2024 12/06/2015 Tobacco Screening 10/24/2025 10/24/2024 Dental BW 10/26/2025 10/24/2024, 03/31, 09/26/2023, Additional history exists Dental Examination 10/26/2025 10/24/2024, 0 04/25/2024, 09/26/2023, Additional history exists Dental Perio Charting 10/26/2025 10/24/2024 , 04/25/2024, 09/26/2023, Additional history exists Dental Prophy 10/26/2025 10/24/2024, 03/31, 09/26/2023, Additional history exists Imm-DTaP/Tdap/Td (2 - Td or Tdap) 12/05/2025 016 Hypertension Screening (#1) 06/01/2027 Dental FMX/Pano 09/27/2028 09/26/2023 Procedures Procedure Name Priority Date/Time Associated Diagnosis Comments PERIODIC ORAL EVALUATION ESTABLISHED PATIENT Routine 10/24/2024 3:00 PM EDT Caries of enamel (incipient) Caries DENTAL CASE MANAGEMENT - MOTIVATIONAL INTV Routine 10/24/2024 3:00 PM EDT Caries of enamel (incipient) Caries PROPHYLAXIS - ADULT Routine 10/24/2024 3 :00 PM EDT Caries of enamel (incipient) Caries COMP PERIODONTAL EVALUATION - NEW/EST PATIENT Routine 10/24/2024 3:00 PM EDT Caries of enamel (incipient) Caries BITEWINGS - FOUR RADIOGRAPHIC IMAGES Routine 10/24/2024 3:00 PM EDT Caries of enamel (incipient) Caries CARIES RISK ASSESSMENT & DOC FINDING HIGH RISK Routine 10/24/2024 3:00 PM EDT Caries of enamel (incipient) Caries NUTRITIONAL COUNSELING CONTROL OF DENTAL DISEASE Routine 10/24/2024 3:00 PM EDT Caries of enamel (incipient) Caries ORAL HYGIENE INSTRUCTIONS Routine 10/24/2024 3:00 PM EDT Caries of enamel (incipient) Caries ORAL CANCER SCREENING Routine 10/24/2024 3:00 PM EDT Caries of enamel (incipient) Caries CASE PRESENTATION SUBS DTL & EXTENSIVE TX PLN Routine 10/24/2024 3:00 PM EDT Caries Caries of enamel (incipient) INTRAORAL - COMP SERIES OF RADIOGRAPHIC IMAGES Routine 09/26/2023 10:20 AM EDT Caries Caries of enamel (incipient) from Last 3 Months or Most Recently Relevant to Health Maintenance Insurance [facility] [employer] PL[employer] [place]ICAID DENTAL FRONTIER DENTAL
[2024-11-25 14:34] VITALS: BP 150/68; PULSE 80; O2SAT 98; BMI 42.9
[2024-11-25 15:04] VITALS: BP 126/80
== END 2024-11-25 15:08 | disposition home or self-care (01) ==
PROVIDERS: PCP Internal Medicine
DX: R73.02 Impaired glucose tolerance (oral) (principal); E66.01 Morbid (severe) obesity due to excess calories; Z68.41 Body mass index [BMI] 40.0-44.9, adult; D64.9 Anemia, unspecified

== ENCOUNTER 2025-02-07 15:26 | Outpatient (AMB) | payer OTHER, MEDICAID, SELFPAY ==
[2025-02-07 15:37] VITALS: BP 110/80; PULSE 82; TEMP 36.3; O2SAT 97; BMI 43.8
--- NOTE | 2025-02-07 15:37 | A.OFFPC_ITS ---
Vital Signs 02/07/25 15:37 Height 5 ft 8 in Weight 288 lb BMI 43.8 BP 110/80 Blood Pressure Location Lt brachial Position Sitting Pulse 82 Pulse Source Pulse Oximeter Temp 97.3 F Temp Source Temporal Artery Scan Pulse Oximetry (%) 97 Oxygen Delivery Method Room Air Intake Visit Reasons: f/u weight loss Assistant Laboratory Director Required: No Accompanied by: Self / Same As Patient Allergies No Known Allergies Allergy (Verified 02/07/25 15:50) Medication List - Last Reconciled 02/07/25 by Denisa Gamboa PA-C garlic 1,500 mg PO DAILY zocjfnuemnc-F-Sihdoyenadzayym 500-200 mg tabs PO iron 65 mg PO DAILY multivit with min-folic acid 200 mcg (Multivitamin Gummies) 1 tab PO DAILY semaglutide (weight loss) (Wegovy) 0.25 mg (0.5 mL) subcut QWEEK vit [id number] 15 unit-15 mg- 12.5 mg-1 mg 1 cap PO Tobacco use date assessed: 02/07/25 Dental Screening Dental Screen Date: 11/25/24 Did you have a dental visit in the last 12 months?: Yes Did you have a dental problem in the last 6 months where you did not have access to dental care?: No Was dental information given to patient?: Patient has dentist HPI f/u weight loss HPI Details 35 year old male with past medical histo ry of anemia, IGT, generalized anxiety disorder last seen 10/2024 coming in for follow up. Presenting for a follow-up on weight management. A request for weight loss injections was denied by his insurance. He has a scheduled [facility] with [facility] with Dr. Rodriguez on March 09. Since his last visit, the patient has gained some weight but has been exercising using a treadmill and dumbbells. He reports some struggles with his diet, particularly with cravings for sweets, but practices portion control for dinner. [facility] Medical History Obesity Piriformis syndrome of both sides Obesity (BMI 30-39.9) Annual physical exam Surgical History History of wisdom tooth extraction Family History Father Hypertension Mother Diabetes Sister No problems noted. Other No family history of cancer Social History Household Members: Family Housing: House Are you a primary acute care certified nursing assistant to a significant other at home: No Do you presently have visiting nurse or other home services: No Alcohol intake: never Patient Tobacco Use Status: Never used Tobacco e-Cigarette/Vaping Use: Never Used Second Hand Smoke Exposure: No service: No Current occupational status: employed Current occupational exposures/hazards: No Cognitive needs: No Hearing needs: No Vision needs: No Questionnaire PHQ-9 Over the last 2 weeks, how often have you been bothered by any of the following problems? 1. Little interest or pleasure in doing things: not at all 2. Feeling down, depressed, or hopeless: not at all 3. Trouble falling or staying asleep, or sleeping too much: several days 4. Feeling tired or having little energy: several days 5. Poor appetite or overeating: several days 6. Feeling bad about yourself - or that you are a failure or have let yourself or your family down: not at all 7. Trouble concentrating on things, such as reading the newspaper or watching television: not at all 8. Moving or speaking so slowly that other people could have noticed. Or the opposite - being so fidgety or restless that you have been moving around a lot more than usual: several days 9. Thoughts that you would be better off or of hurting yourself in some way: not at all Total score: 4 Depression Screening Interpretation: Positive Depression Screening Done: Yes Source: Developed by Drs. Iván Rush, Elle Burrell, Alfonso Morrell and colleagues, with an educational leisa from [id number]. Thrive Questionnaire Date Thrive assessed: 04/14/24 I am a: Patient What is your living situation today?: I have a steady place to live Within the past 12 months, did the food you bought not last and you didn't have the money to get more?: Never true Within the past 12 months, did you worry whether your food would run out before you got money to buy more?: Never true Do you have trouble paying for medicines?: No Do you have trouble getting transportation to medical appointments?: No Do you have trouble paying your heating and electricity bill?: No Do you have trouble taking care of your child, family member or friend?: No Do you have trouble with day-to-day activities such as bathing, preparing meals, shopping, managing finances, etc.?: No Are you currently unemployed and looking for a job?: No Are you interested in more education?: Yes Please select the resources that you would like help with: Food Currently or been in a relationship where the following occur: I choose not to answer THRIVE Score: 0 AUDIT C Alcohol Use Questionnaire (AUDIT-C) 3. How often do you have six or more drinks on one occasion?: Never Total Score: 0 SHERRY-7 AMB Questionnaire SHERRY-7 Date SHERRY - 7 assessed: 04/14/24 Feeling nervous, anxious, or on edge: 1 = Several days Not being able to stop or control worryin = Not at all Worrying too much about different things: 1 = Several days Trouble relaxin = Not at all Being so restless that it is hard to sit still: 0 = Not at all Becoming easily annoyed or irritable: 0 = Not at all Feeling afraid as if something awful might happen: 1 = Several days Total SHERRY-7 score (0-4 normal; 5-9 mild; 10-14 moderate; 15-21 severe): 3 Source: Developed by Drs. Iván Rush, Elle Burrell, Alfonso Morrell and colleagues, with an educational leisa from [employer]. Review of Systems Const Denies body aches, Denies chills, Denies fever(s), Denies headache(s) and Denies poor appetite Eyes Reports no additional complaints ENT Denies dizziness and Denies headache(s) Card Denies chest pain, Denies edema, Denies lightheadedness and Denies dyspnea Resp Denies dyspnea GI Denies abdominal pain, Denies nausea and Denies vomiting Reports no additional complaints Musc Reports no additional complaints and Denies abnormal gait Skin/Breast Reports system reviewed and no additional complaints, except as documented Neuro Denies abnormal gait, Denies dizziness and Denies headache(s) Psych Reports no additional complaints Physical exam (Primary Care) Vital Signs: Last Vital Signs Temp 97.3 F 02/07/25 15:37 Pulse 82 02/07/25 15:37 BP 110/80 02/07/25 15:37 Pulse Ox 97 02/07/25 15:37 Oxygen Delivery Method Room Air 02/07/25 15:37 BMI result Body Mass Index 43.8 Tobacco/Smoking Status: Tobacco use Status Tobacco use date assessed 02/07/25 02/07/25 15:45 Patient Tobacco Use Status Never used Tobacco 02/07/25 15:45 e-Cigarette/Vaping Use Never Used 02/07/25 15:45 PHQ-9: PHQ-9 Score PHQ-9: Total score 4 02/07/25 16:23 Depression Screening Interpretation: Positive Thrive Assessment: Date of Thrive Assessment Date Thrive assessed 04/14/24 02/07/25 15:45 Currently or been in a relationship where the following occur: I choose not to answer Const General: cooperative, healthy appearing, comfortable and no acute distress Orientation/consciousness: patient oriented x3 HENMT Head: Yes normocephalic Ears: hearing grossly normal bilaterally General nose exam: Normal external nose present Eyes General: appearance normal, both eyes and all related structures Conjunctivae: conjunctivae normal Neck Neck: Yes full ROM and Yes no lymphadenopathy Resp Effort & Inspection: normal respiratory effort Auscultation: clear to auscultation bilaterally, no crackles, no rales, no rhonchi and no wheezes Cardio Rate: regular rate Rhythm: regular rhythm Skin General skin exam: no rashes or lesions noted Neuro General: patient oriented x3 Gait exam (Neuro): Normal gait present Extrem General: Yes normal to inspection, Yes full ROM and No edema Psych Affect: normal affect Attitude: cooperative Insight: Good insight present (Psych) Judgement: Good judgement present (Psych) Office Procedures Flu Questionnaire Does the patient have a severe egg allergy?: No Does the patient have severe life threatening allergies?: No Does the patient have a fever or illness today?: No Has the patient ever had Guillain-[place] Syndrome?: No Has the patient ever had any past reaction to a flu shot?: No Immunizations Fluarix [id number] (PF) 45 mcg (15 mcg x 3)/0.5 mL IM syringe Performing Provider: Denisa Gamboa PA-C [facility] Administered by: Mago Humphreys RN on 02/07/25 16:23 Dose Route Admin Location Dispensed Lot Number Expiration Date [facility] Welt Drawer 0.5 mL IM Left Deltoid 0.5 mL [id number] 09/26/25 [id number] [employer] VIS Given Date VIS Provided VIS Publication Date 02/07/25 Single Vaccine 24 Eligibility Eligibility Date Funding Source Not [facility] Eligible 02/07/25 Private Coding Level of Care Code Est Pt Level 3 (13798) Diagnoses Impaired glucose tolerance R73.02 Morbid obesity E66.01 Assessment & Plan Assessment & Plan (1) Impaired glucose tolerance: Code(s): R73.02 - Impaired glucose tolerance (oral) Category: Medical Plan: Decrease the amount of carbohydrates such as pasta, bread, rice, and potatoes and limit the amount of sweets. Although fruits are generally healthy they should be eaten in moderation as they are still high in sugar. (2) Morbid obesity: Code(s): E66.01 - Morbid (severe) obesity due to excess calories Category: Medical Plan: Healthy diet and regular exercise is encouraged. GLP-1 injections were declined by insurance and patient was sent to weight management. He has upcoming apppointment 02/2025. Plan This note was constructed using voice recognition software. While every effort has been made to ensure accuracy and city comptroller, still areas may have been included sometimes these areas may affect the content or meeting of the given symptoms. Total time spent caring for the patient today was 20 minutes. This includes time spent before the visit reviewing the chart, time spent during the visit, and time spent after the visit and documentation. Patient was informed and verbally consented to the use of an ambient scribe for clinic note documentation during this visit. Orders: Orders Influenza [id number] Immunization Today Z23 - Encounter for immunization Medications: Discontinued semaglutide (weight loss) (Wetaviavthompson) administer weeks 1 through 4 of therapy Discontinued Reason: Patient no longer taking 0.25 mg (0.5 mL) subcut QWEEK 2 mL 0RF E66.01 - Morbid (severe) obesity due to excess calories, R03.0 - Elevated blood-pressure reading, without diagnosis of hypertension, R73.02 - Impaired glucose tolerance (oral)
== END 2025-02-07 16:20 | disposition home or self-care (01) ==
LOC: HO.HMCH 15:27
PROVIDERS: PCP Internal Medicine
DX: Z23 Encounter for immunization (principal)

== ENCOUNTER → 2025-02-07 15:26 | Outpatient (BNVA) | payer OTHER, MEDICAID, SELFPAY | PROVIDERS: PCP Internal Medicine | DX: F41.1 Generalized anxiety disorder (principal); D64.9 Anemia, unspecified; R73.02 Impaired glucose tolerance (oral); E66.01 Morbid (severe) obesity due to excess calories; Z68.41 Body mass index [BMI] 40.0-44.9, adult; Z23 Encounter for immunization | CPT/HCPCS: 90471; 90656; 96127 ==

== ENCOUNTER 2025-03-13 08:22 | Outpatient (AMB) | payer OTHER, MEDICAID, SELFPAY ==
--- NOTE | 2025-03-13 15:00 | A.OFFVIS_ITS ---
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 Allergies No Known Allergies Allergy (Verified 03/13/25 15:03) Medication List - Last Reconciled 03/13/25 by Deejay Adam MD garlic 1,500 mg PO DAILY mubaonlyogz-G-Zkvosgjrggmlbnu 500-200 mg tabs PO iron 65 mg PO DAILY multivit with min-folic acid 200 mcg (Multivitamin Gummies) 1 tab PO DAILY vit [id number]-[id number]-Q10 15 unit-15 mg- 12.5 mg-1 mg 1 cap PO HPI HPI 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: Details: Start time: 2.39pm, End time: 3.24pm ?I spent 40 minutes speaking with the patient on the phone plus an additional 5 minutes reviewing and updating records for a total of 45 minutes HPI Comments Details: Previous weight loss efforts: self diet and exercise Wakes up: 4.40am, Sleeps: 11pm Breakfast: 7.30am (cereal) Lunch: 10am (waffle, mozzarella sticks) Dinner: 5-6pm (chicken, fish, salad and fries) Snacks: 4pm (fruit), 8pm (corn flakes or ice cream) Exercise: Has a treadmill at home that tracks and inclines Beverages: Coffee (1 cup/d with milk and creamer), Tea: none, Soda: on weekends, Juice: 1.5 cup/d, ETOH: none PFSH Medical History Obesity Piriformis syndrome of both sides Obesity (BMI 30-39.9) Annual physical exam Surgical History History of wisdom tooth extraction Family History Father Hypertension Mother Diabetes Sister No problems noted. Other No family history of cancer Social History Household Members: Family Housing: House Are you a primary managed care provider to a significant other at home: No Do you presently have visiting nurse or other home services: No Alcohol intake: never Patient Tobacco Use Status: Never used Tobacco e-Cigarette/Vaping Use: Never Used Second Hand Smoke Exposure: No service: No Current occupational status: employed Current occupational exposures/hazards: No Cognitive needs: No Hearing needs: No Vision needs: No Telehealth Telehealth Telehealth Platform: Telephone Location of provider rendering services: practice address Location of patient: address on file Patient Identification confirmed using: Name, : Yes Telehealth method: voice only Patient verbally consented to treatment: Yes Patient verbally consented to billing insurance company: Yes Patient informed of any privacy concerns related to visit: Yes Minutes spent on Phone/Video with Pt.: 45 Assessment & Plan Assessment & Plan (1) Morbid obesity: Code(s): E66.01 - Morbid (severe) obesity due to excess calories Category: Medical Plan: Dear Giovanni, It was a pleasure talking to you?today. This is the summary of what we discussed today: ?1. As we discussed, based on your present BMI you are approximately 130lbs overweight. In my opinion, for any weight loss strategy to be successful should have a high probability to help you lose at least 110lbs out of 130lbs of the extra weight you carry. ?We discussed in detail the available therapeutic options: ?1) our lifestyle intervention program that has an average weight loss of 10% in 3 months.?Some patients continue it for longer and have lost over 50lbs but this is not common. Our lifestyle program can be provided by me. I will provide you with a link to use the parisa if you choose to do so. We use protein shakes and protein bars to replace some of the meals of the day and cover your appetite better. We will decide together the exact combination. ?2) Weight loss medications: these can be used in conjunction with our lifestyle program or you may choose to use them without following a lifestyle program from my program but your own. One option is the Phentermine pill which is affordable as self pay option. It is well tolerated and most common side effects include blood pressure elevation, dry mouth, difficulty sleeping and heart palpitations. However, it can raise the blood pressure and it may not be the best option for you since you have high blood pressure already. It?s a temporary solution however and most patients tend to put the weight back once the medication is stopped. 3) Your insurance does not cover the new weight loss shots before you participate in our program for 3 months. We also discussed that you can self pay for the weight loss injections and the cost is $249 for the first month and $499 for any other month thereafter. These payments go to the drug company directly and not to us. As we discussed, this is not a jail solution, as most patients put all the weight back once they are off the medication. There is also an option to get generic versions from compound pharmacies at cheaper rates but their efficacy and how they are manufactured is not that clear. ?4) We also discussed about the lap sleeve gastrectomy. 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 This will address the reflux as well as the frequent runs to the bathrooom you experience. ??I emphasized the importance of close follow-up, adherence to instructions and good communication. The surgery does not replace the need to change your lifestlyle which is the cause of the obesity problem. The surgery provides the motivation to try again to change your lifestyle, it reduces the appetite and make the transition to a better lifestyle easier and doubles the amount of weight you would lose compared to doing the lifestyle change without the surgery. You will need to be on a liquid diet with protein shakes for 2 weeks before surgery to maximize weight loss and boost your nutritional status to recover better from surgery and also for the first two weeks after surgery to let the stomach heal before we introduce other foods. After the first 2 weeks we will introduce protein bars and soft foods like scrambled eggs, cottage cheese and yogurt and after the 6th week will introduce meat, fish and cooked vegetables in small amounts. Over time you should be able to eat everything in small amounts. Side effects like nausea, vomiting, heartburn or abdominal pain are not common in the practice unless you are not following in the practice. This operation requires lifetime commitment to following in our practice and communication with me. You will much less weight and experience side effects if you don?t communicate or not following in the practice. Complications are rare and in our practice is about 1/10 of the national average. 5) Very Important: We do extensive research in this practice. In very recent research we did, we found that patients who did the lifestyle program without medications followed by weight loss surgery, lost twice as much as they would lose if they used the shots for the same period of time and with the two groups being completely matched in terms of demographics and starting weights. Another research study we did found that when we compared patients who did our lifestyle program without or with the weight loss shots, they lost the same w eight but they did not lose any muscle mass. The patients who used the shots lost about 3% of their muscle mass in 3 months which translates to 5-15lbs of actual muscle mass depending on each patient's initial weight. That's not good because it makes you frail and weak and reduces your metabolism. 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 Preoperative weight loss is not commonly used by many practices especially at this magnitude, but it is our philosophy and makes a huge difference. Please let me know what you decide.? Dr. Adam [phone]?
[2025-03-13 15:12] VITALS: BMI 43.3
== END 2025-03-13 15:25 | disposition home or self-care (01) ==
LOC: HO.HBS 08:22
PROVIDERS: PCP Internal Medicine; Visit Provider Surgery
DX: E66.01 Morbid (severe) obesity due to excess calories (principal); Z68.41 Body mass index [BMI] 40.0-44.9, adult
CPT/HCPCS: 98010